=== PATIENT | male | born 1995 | race Caucasian/White ===

== ENCOUNTER 2024-04-22 16:50 | Emergency (ER) | payer SELFPAY ==
[2024-04-22] MEDS ORDERED: Acetaminophen 500 MG TAB ONE (20:08)
[2024-04-22] MEDS ORDERED: Boostrix 0.5 ML (Tdap) VIAL (>/=7 yrs of age) ONE (20:08)
== END 2024-04-22 20:37 | disposition home or self-care (01) ==
LOC: CSHERS 16:50
DX: S61.213A Laceration without foreign body of left middle finger without damage to nail, initial encounter (principal); W22.8XXA Striking against or struck by other objects, initial encounter; Y93.89 Activity, other specified; Y92.69 Other specified industrial and construction area as the place of occurrence of the external cause; Z23 Encounter for immunization
CPT/HCPCS: 90471; 90715

== ENCOUNTER 2024-07-31 18:41 | Emergency (ER) | payer SELFPAY ==
[2024-07-31] MEDS ORDERED: Meclizine HCl 25 MG TAB ONE (19:51)
== END 2024-07-31 21:36 | disposition home or self-care (01) ==
LOC: CSHERS 18:41
DX: R42 Dizziness and giddiness (principal)
CPT/HCPCS: 93005; 99284

== ENCOUNTER 2025-05-23 17:59 | Emergency (ER) | payer SELFPAY ==
[2025-05-23 18:50] LABS: #Basophils 0.07 10x3/uL (0.0-0.2); #Eosinophils 1.82 10x3/uL (0.0-0.5); #Monocytes 0.72 10x3/uL (0.0-1.1); #Neutrophils 6.41 10x3/uL (1.5-8.4); %Basophils 0.6 % (0.0-2.0); %Eosinophils 14.5 % (0.0-6.0); %Lymphocytes 27.9 % (18.0-47.0); %Monocytes 5.7 % (0.0-10.0); %Neutrophils 51.1 % (40.0-75.0); Hematocrit 41.6 % (38.8-50.0); Hemoglobin 14.7 g/dL (13.5-17.5); Mean Corpuscular Hemoglobin 30.9 pg (27.0-33.0); Mean Corpuscular Volume 87.4 fL (81.2-95.1); Platelet Count 258 10x3/uL (150-450); Red Blood Cell (RBC) Count 4.76 10x6/uL (4.32-5.72); White Blood Cell (WBC) Count 12.54 10x3/uL (3.5-10.5)
[2025-05-23 19:02] LABS: ALT (SGPT) 21 U/L (Less than 45); AST (SGOT) 21 U/L (11-34); Albumin 4.4 g/dL (3.1-4.5); Alkaline Phosphatase 87 U/L (40-110); Anion Gap 12 mmol/L (10-20); BUN (Urea Nitrogen) 13 mg/dL (8.9-20.6); Bilirubin, Total 0.2 mg/dL (0.3-1.2); Calc. Creatinine Clearance 0 mL/min (70-130); Calcium 9.6 mg/dL (7.8-10.44); Carbon Dioxide 26 mmol/L (22-29); Chloride 105 mmol/L (98-107); Globulin 3.0 g/dL (2.4-3.5); Glucose 97 mg/dL (70-105); Lipase 13 U/L (8-78); Potassium 3.8 mmol/L (3.5-5.1); Sodium 139 mmol/L (136-145)
[2025-05-23 19:08] LABS: Troponin I Less than 0.010 ng/mL (< 0.028)
[2025-05-23] MEDS ORDERED: Milk Of Magnesia 30 ML UDCUP ONE (20:38)
[2025-05-23] MEDS ORDERED: Lidocaine Viscous Sol 2% 15 ml UD Cup ONE (20:39)
[2025-05-23 21:15] LABS: Glucose, Urine (Dipstick) Normal (Negative); Leukocyte Negative (Negative); Protein, Urine (Dipstick) Negative (Neg-Trace); Specific Gravity, Urine 1.010 (1.005-1.030)
[2025-05-23 21:28] LABS: Bacteria/HPF None Seen HPF (None Seen); CAUTI Indications for Culture Dysuria,urgency,freq; RBC/HPF None Seen HPF (0-3); WBC/HPF None Seen HPF (0-3)
[2025-05-23 21:29] LABS: Urine Culture Reflex No No
== END 2025-05-23 22:00 | disposition home or self-care (01) ==
LOC: CSHERS 17:59
DX: K29.00 Acute gastritis without bleeding (principal)
CPT/HCPCS: 76705; 80053; 81001; 83690; 84484; 85025; 93005